=== PATIENT | male | born 1995 | race Two or more races ===

== ENCOUNTER 2020-07-15 01:39 | Emergency (ER) | payer SELFPAY ==
[~2020-07-15] VITALS: Ht 175.3 cm; Wt 81.6 kg
--- NOTE | 2020-07-15 01:52 | NUR ---
RADIOLOGY AT BEDSIDE FOR XRAY
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
--- NOTE | 2020-07-15 03:12 | NUR ---
SELENA WRAP APPLIED TO R ANKLE. PT REFUSED CRUTCHES. Patient discharged to home in stable condition. Written and verbal after care instructions given. Patient verbalizes understanding of instruction.
[2020-07-15 03:13] VITALS: BP 113/62
== END 2020-07-15 03:14 | disposition home or self-care (01) ==
LOC: ER 01:42
DX: S99.812A Other specified injuries of left ankle, initial encounter (principal); R00.0 Tachycardia, unspecified; X50.1XXA Overexertion from prolonged static or awkward postures, initial encounter; Y93.89 Activity, other specified; Y92.89 Other specified places as the place of occurrence of the external cause; Y99.8 Other external cause status
CPT/HCPCS: 73610-TC